=== PATIENT | male | born 2000 | race American Indian/Alaskan Native ===

== ENCOUNTER 2021-03-02 12:56 | Emergency (ER) | payer OTHER ==
--- NOTE | 2021-03-02 16:23 | Emergency Department Report ---
Chief Complaint: Urogenital-Male Stated Complaint: HIV EXPOSURE,GENITAL HERPE, CHILLS, MENTAL ILLNESS Time Seen by Provider: 03/02/21 16:22 - HPI History of Present Illness: Pt comes to the ER with no symptoms He is requesting HIV and herpes testing He is autistic; has had numerous male partners over the last few years He gave blood a year ago and recently got a letter in the mail telling him he should be tested He is here with friend I've explained to him the ER does not do these tests and that a PCP would benefit him for not only testing; but counseling and treatment if needed. - ROS Review of Systems: none - Exam Vital Signs: normal as documented by RN Physical Exam: alert oriented oglesby ambulatory and non ill on exam s1s2 lungs cta abd snt no testicular pain no lesion on penis MSE screening note: Focused history and physical exam performed. Due to findings the following was ordered: no life threat MSE to PCP ED Disposition for MSE Clinical Impression: Wellness examination Disposition: HOME / SELF CARE / HOMELESS Is pt being admited?: No Does the pt Need Aspirin: No Condition: Undetermined Instructions: Supporting Someone With Autism Spectrum Disorder, Living With Autism Spectrum Disorder Additional Instructions: FOLLOW UP WITH PCP WE DISCUSSED Referrals: MARTIN COLBY MD [Staff Physician] - 3-5 Days Time of Disposition: 16:22
== END 2021-03-02 16:46 | disposition home or self-care (01) ==
LOC: ED 12:56
DX: Z00.00 Encounter for general adult medical examination without abnormal findings (principal)
CPT/HCPCS: 99281